=== PATIENT | female | born 1955 | race Caucasian/White ===

== ENCOUNTER 2016-05-31 08:50 | Observation (INO) | payer BC, OTHER ==
[~2016-05-31] VITALS: Ht 162.6 cm; Wt 61.0 kg
[~2016-05-31 08:50] MED LIST: CIPRO500 MG PO; COLACE100 MG PO; FLAGYL500 MG PO; IBUPROFEN800 MG PO; MILK OF MAGN PO; OMEGA-31000 M1 PO; PERCOCET 5/31 TABLET PO; PROBIOTIC PEAR1 EACH PO; PROBIOTIC1 EAC1 PO
[2016-05-31 09:24] LABS: EOSINOPHIL (%) 1.8 % (0-5); EOSINOPHIL COUNT 0.1 K/uL (0-0.3); HEMATOCRIT 40.5 % (36.0-46.0); IMMATURE GRANULOCYTE (%) 0.3 % (0.0-0.7); IMMATURE GRANULOCYTE COUNT 0.2 K/uL; LYMPHOCYTE COUNT 1.3 K/uL (1.0-2.8); MCH 31.7 PG (29.0-34.0); MCHC 35.6 G/DL (30.0-36.0); MCV 89.2 FL (83-99); MEAN PLAT.VOLUME 8.7 uM^3 (9.5-12.4); MONOCYTE (%) 7.6 % (3-12); MONOCYTE COUNT 0.5 K/uL (0-0.8); NEUTROPHIL (%) 72.2 % (45-76); NEUTROPHIL COUNT 5.1 K/uL (1.8-6.4); PLATELET COUNT 282 K/uL (156-360); RBC DIS.WIDTH-CV 12.9 % (11.8-14.6); RBC DIS.WIDTH-SD 41.4 % (39-53); RED BLOOD COUNT 4.54 M/uL (3.80-5.20); WHITE BLOOD COUNT 7.1 K/uL (4.1-10.2)
[2016-05-31 09:32] LABS: CHLORIDE 101 mEq/L (99-109); POTASSIUM 3.7 mEq/L (3.7-5.4); SODIUM 137 mEq/L (136-147)
[2016-05-31 09:34] LABS: GLUCOSE 122 mg/dL (70-99)
[2016-05-31 09:36] LABS: ANION GAP 11 MEQ/L (2-14)
[2016-05-31 09:38] LABS: GFR ESTIMATE (CALCULATED) > 59 mL/min/
[2016-05-31 09:39] LABS: UREA NITROGEN (BUN) 6 mg/dL (9-23)
[2016-05-31 11:59] LABS: TROP-I INTERPRETATION NEGATIVE; TROPONIN-I < 0.01 ng/mL (0.0-0.30)
[2016-05-31 12:04] LABS: HDL CHOLESTEROL 93 MG/DL (Desirable>=50); LDL CHOLESTEROL 118 mg/dL (Desirable<100); NON-HDL CHOLESTEROL 133 mg/dL (Desirable<160); TOTAL CHOLESTEROL 226 mg/dL (Desirable<200); TRIGLYCERIDES 77 MG/DL (Normal: <150)
[2016-05-31 12:29] LABS: Estimated Average Glucose 105 mg/dL (70-123); HEMOGLOBIN A1c (GLYCOHEMOGLOB) 5.3 % HGB (Below 5.7)
[2016-05-31] MEDS ORDERED: VITAMIN D31000 UNI2 PO (12:36)
[2016-05-31 14:25] VITALS: BP 175/100
[2016-05-31 16:08] VITALS: BP 168/98
[2016-05-31 21:00] VITALS: BP 200/110
[2016-05-31 22:00] VITALS: BP 162/80
[2016-05-31 22:06] LABS: ADD MIUA? YES; BILIRUBIN NEGATIVE; BLOOD NEGATIVE; COLOR YELLOW ((YELLOW)); GLUCOSE (STRIP) NEGATIVE; KETONES NEGATIVE; LEUKOCYTES MODERATE; NITRITE NEGATIVE; PROTEIN (STRIP) NEGATIVE; SPECIFIC GRAVITY 1.007 (1.000-1.030); UROBILINOGEN 0.2 MG/DL (0.2-1.0)
[2016-05-31 22:30] VITALS: BP 148/80
[2016-05-31 22:45] LABS: BACTERIA RARE; CASTS NONE SEEN /LPF; CRYSTALS NONE SEEN; EPITHELIAL CELLS NONE SEEN; MUCUS NONE SEEN; RED BLOOD CELLS 0-5 /HPF (0-5)
[2016-06-01 01:00] VITALS: BP 170/96
[2016-06-01 03:00] VITALS: BP 152/83
[2016-06-01 05:00] VITALS: BP 158/88
[2016-06-01 07:21] LABS: ANION GAP 9 MEQ/L (2-14); CHLORIDE 99 MEQ/L (99-109); GFR ESTIMATE (CALCULATED) > 59 mL/min/; GLUCOSE 104 mg/dL (70-99); POTASSIUM 4.4 MEQ/L (3.7-5.4); SAMPLE HEMOLYSIS CHECK 0; SAMPLE ICTERIC CHECK 0; SAMPLE LIPEMIA CHECK 0; SODIUM 135 MEQ/L (136-147); UREA NITROGEN (BUN) 9 mg/dL (9-23)
[2016-06-01] MEDS ORDERED: NICOTINE PATCH1 EAC2 TD (09:27)
[2016-06-01] MEDS ORDERED: LISINOPRIL20 MG PO (09:27)
[2016-06-01] MEDS ORDERED: HYDROCHLOROTH12.5 M3 PO (09:28)
[2016-06-01 10:00] VITALS: BP 142/86
[2016-06-01] MEDS ORDERED: LO-DOSE ASPIRIN81 M2 PO (10:00)
== END 2016-06-01 12:20 | disposition home or self-care (01) ==
LOC: EME → EDBD 08:50 → EME 08:50 → EDOF 10:20 → 5WEST 10:20 → EDOF 10:20 → 5WEST 14:03
PROVIDERS: Emergency Medicine; Internal Medicine
DX: I16.1 Hypertensive emergency (principal); I10 Essential (primary) hypertension; F17.200 Nicotine dependence, unspecified, uncomplicated; R94.31 Abnormal electrocardiogram [ECG] [EKG]; Z79.899 Other long term (current) drug therapy; I49.3 Ventricular premature depolarization
CPT/HCPCS: 71010; 80048; 80061; 81003; 83036; 84484; 85025; 93005; 93306; 99281; 99285; G0378; J1650